=== PATIENT | male | born 1995 | race Caucasian/White ===

== ENCOUNTER 2023-06-08 01:03 | Emergency (ER) | payer MEDICAID ==
[~2023-06-08] VITALS: Ht 175.3 cm; Wt 97.0 kg
[2023-06-08 01:14] VITALS: BP 150/76; PULSE 113; RESP 18; TEMP 98.4; O2SAT 98
[2023-06-08] MEDS: NALOXONE HCL 0.4 MG/ML 1ML VIAL IM ONE ×2 (02:02→02:15)
[2023-06-08] MEDS ORDERED: NALO4SPR BOTHNSTRLS (02:18)
== END 2023-06-08 02:44 | disposition home or self-care (01) ==
LOC: ER 01:03
DX: T40.411A Poisoning by fentanyl or fentanyl analogs, accidental (unintentional), initial encounter (principal); Y92.9 Unspecified place or not applicable
CPT/HCPCS: 99283; J2310